=== PATIENT | female | born 1955 | race Caucasian/White ===

== ENCOUNTER 2021-08-25 06:03 | Day surgery (SDC) | payer OTHER ==
[~2021-08-25] VITALS: Ht 157.5 cm; Wt 52.6 kg
--- NOTE | ~2021-08-25 | O ---
[facility] [place] [address] OPERATIVE REPORT Name: WANG VILLAGOMEZ Room #: 150-1 [facility]..#: [id number] Admission: 08/25/21 Attend Phys: Boo Mathis MD Discharge: Date of : 51 Report #: [id number] THIS REPORT FOR: cc: July Vargas MD,July Mathis,Boo Daily MD ~ cc: July Vargas DATE OF SERVICE: 08/25/2021 PATIENT OF: Dr. Mathis and Dr. July Vargas. PREOPERATIVE DIAGNOSIS: Incarcerated femoral hernia. POSTOPERATIVE DIAGNOSIS: Incarcerated femoral hernia. PROCEDURE: Repair of an incarcerated right femoral hernia. SURGEON: Boo Mathis MD ANESTHESIA: Local IV sedation. DESCRIPTION OF PROCEDURE: The patient was brought to the operating room and placed on the operating table in the supine position. Sequential compression devices were in place for DVT prophylaxis. There was no indication for preoperative antibiotics. The patient had stopped her Coumadin anticoagulation appropriate period of time and her INR preoperatively was adequate at 1.5. The right inguinal area was then prepped and draped in a sterile fashion after undergoing IV sedation, skin and subcutaneous tissue were then infiltrated with 0.5% Marcaine, 1% Xylocaine with epinephrine. A right inguinal skin incision was then performed using #10 scalpel blade. Hemostasis obtained using the electrocautery. Dissection was carried down through the subcutaneous tissue and Darrius's fascia to the femoral area, where an incarcerated femoral hernia was identified. The hernia sac and some preperitoneal fat was dissected free. Preperitoneal fat was then clamped, excised and tied with a 2-0 chromic tie. The hernia sac was then able to be reduced back through the femoral canal. A piece of Prolene mesh was cut and rolled and secured with two 2-0 Prolene sutures. This plug was then inserted in the femoral defect and secured circumferentially with simple interrupted 2-0 Prolene sutures. The deep and superficial subcutaneous tissue including Darrius's fascia was then reapproximated using simple interrupted 2-0 chromic sutures and the skin then closed with a running 4-0 subcuticular Vicryl stitch. The wound was then dressed with Mastisol, 1/2-inch Steri-Strips cut in half, Telfa, 4 x 4 gauze, sponge and tape. The patient was then awakened from the IV sedation and taken to recovery room awake, alert and in good condition. Estimated blood loss was [facility] [address] [place] [address] OPERATIVE REPORT Name: WANG VILLAGOMEZ Room #: 150-1 [facility].#: [id number] Admission: 08/25/21 Attend Phys: Boo Mathis MD Discharge: Date of : 51 Report #: [id number] approximately 5 mL and the patient tolerated the procedure well. All sponge, lap and instrument counts were correct x2. By: 8 0942 Boo Mathis MD /iggy
[~2021-08-25 06:03] MED LIST: ALENDRONATE SOD70 MG PO; ENOXAPARIN60 MG/0.6 SUBQ; HYDROXYCHLOROQ200 M1 PO; IRON240 M1 PO; TRIAMTERENE/HCT1 CA1 PO; VITAMIN C500 M1 PO; VITAMIN D3125 MC1 PO; WARFARIN SODIUM5 MG PO
[2021-08-25 06:50] VITALS: BP 85/52
[2021-08-25 07:14] LABS: INR 1.56; PROTIME 16.6 Seconds (10.5-12.1)
[2021-08-25 08:05] VITALS: BP 97/45
--- NOTE | 2021-08-25 08:06 | EKG ---
[address] [employer] [place] [address] ELECTROCARDIOGRAM REPORT Name: WANG VILLAGOMEZ Room #: 150-1 [facility]#: [id number] Admission: 08/25/21 Attend Phys: Boo Mathis MD Discharge: Date of : 51 Report #: [id number] [facility] Test Date: 2021-08-25 Test Time: 07:49:57 Pat Name: WANG VILLAGOMEZ Department: Room: 150 Gender: F Equine Intern: TRUDY : 1955 Requested By: Carol Walters Order Number: [id number] MD: Virgilio Rivas Measurements Intervals [place] Rate: 56 P: HI: QRS: 184 QRSD: 164 T: 216 QT: 472 QTc: 456 Interpretive Statements Atrial flutter Consider left ventricular hypertrophy Nonspecific intraventricular conduction delay Nonspecific T wave abnormality No previous ECG available for comparison Electronically Signed On 08-25-2021 8:06:24 [employer]ING [employer]OL OPERATOR by Virgilio Rivas [email or web address] <ELECTRONICALLY SIGNED> By: Virgiilo Rivas MD, [facility] 08/25/21 0806 0749 0749 Virgilio Rivas MD, FACC /EPI
[2021-08-25] MEDS ORDERED: HYDROCODON-ACE1 EAC7 PO (09:07)
[2021-08-25 09:58] VITALS: BP 97/45
--- NOTE | 2021-09-03 15:05 | O ---
[facility] [place] [address] OPERATIVE REPORT Name: WANG VILLAGOMEZ Room #: [facility].#: [id number] Admission: 08/25/21 Attend Phys: Boo Mathis MD Discharge: 08/25/21 Date of : 51 Report #: [id number] THIS REPORT FOR: cc: July Vargas MD,July Mathis,Boo Daily MD ~ cc: July Vargas DATE OF SERVICE: 08/25/2021 PATIENT OF: Dr. Mathis and Dr. July Vargas. PREOPERATIVE DIAGNOSIS: Incarcerated femoral hernia. POSTOPERATIVE DIAGNOSIS: Incarcerated femoral hernia. PROCEDURE: Repair of an incarcerated right femoral hernia. SURGEON: Boo Mathis MD ANESTHESIA: Local IV sedation. DESCRIPTION OF PROCEDURE: The patient was brought to the operating room and placed on the operating table in the supine position. Sequential compression devices were in place for DVT prophylaxis. There was no indication for preoperative antibiotics. The patient had stopped her Coumadin anticoagulation appropriate period of time and her INR preoperatively was adequate at 1.5. The right inguinal area was then prepped and draped in a sterile fashion after undergoing IV sedation, skin and subcutaneous tissue were then infiltrated with 0.5% Marcaine, 1% Xylocaine with epinephrine. A right inguinal skin incision was then performed using #10 scalpel blade. Hemostasis obtained using the electrocautery. Dissection was carried down through the subcutaneous tissue and Darrius's fascia to the femoral area, where an incarcerated femoral hernia was identified. The hernia sac and some preperitoneal fat was dissected free. Preperitoneal fat was then clamped, excised and tied with a 2-0 chromic tie. The hernia sac was then able to be reduced back through the femoral canal. A piece of Prolene mesh was cut and rolled and secured with two 2-0 Prolene sutures. This plug was then inserted in the femoral defect and secured circumferentially with simple interrupted 2-0 Prolene sutures. The deep and superficial subcutaneous tissue including Darrius's fascia was then reapproximated using simple interrupted 2-0 chromic sutures and the skin then closed with a running 4-0 subcuticular Vicryl stitch. The wound was then dressed with Mastisol, 1/2-inch Steri-Strips cut in half, Telfa, 4 x 4 gauze, sponge and tape. The patient was then awakened from the IV sedation and taken to recovery room awake, alert and in good condition. Estimated blood loss was [facility] [address] [place] [address] OPERATIVE REPORT Name: WANG VILLAGOMEZ Room #: DEP [facility]#: [id number] Admission: 08/25/21 Attend Phys: Boo Mathis MD Discharge: 08/25/21 Date of : 51 Report #: [id number] approximately 5 mL and the patient tolerated the procedure well. All sponge, lap and instrument counts were correct x2. <ELECTRONICALLY SIGNED> By: Boo Mathis MD 09/03/21 1505 [id number] [id number] Boo Mathis MD /nt
== END 2021-08-25 10:55 | disposition home or self-care (01) ==
LOC: OR 06:03 → TBA 06:04 → OR 08:57
PROVIDERS: Anesthesiology; ATTEND Surgery
DX: K41.30 Unilateral femoral hernia, with obstruction, without gangrene, not specified as recurrent (principal); I10 Essential (primary) hypertension; I25.2 Old myocardial infarction; Z98.890 Other specified postprocedural states; Z79.899 Other long term (current) drug therapy; Z79.01 Long term (current) use of anticoagulants; Z95.2 Presence of prosthetic heart valve; Z20.822 Contact with and (suspected) exposure to COVID-19
CPT/HCPCS: 50010; 50101; 50386; 50403; 56524; 56525; 56526; 56528; 57108; 62110; 62850; 70005